=== PATIENT | male | born 1965 | race Caucasian/White ===

== ENCOUNTER 2019-10-21 08:28 | Outpatient (CLI) | payer OTHER, SELFPAY ==
[2019-10-21 13:04] LABS: Hemoglobin A1C 5.8 % (4.5-6.2)
[2019-10-21 13:10] LABS: Anion Gap 11.5 mmol/L (3-11); BUN 19 mg/dL (7-18); CO2 27.5 mmol/L (21.0-32.0); CREATININE 1.06 mg/dL (0.70-1.30); Calcium 9.5 mg/dL (8.5-10.1); Calculated LDL 147 mg/dL; Chloride 102 mmol/L (98-107); Cholesterol 246 mg/dL (<200); Glucose 92 mg/dL (74-106); HDL Cholesterol 47 mg/dL (40-60); Potassium 4.2 mmol/L (3.5-5.1); Sodium 141 mmol/L (136-145); Triglyceride 264 mg/dL (<150)
== END 2019-10-21 08:48 ==
PROVIDERS: PCP Nurse Practitioner; Visit Provider Nurse Practitioner
DX: I10 Essential (primary) hypertension (principal); Z13.220 Encounter for screening for lipoid disorders; Z13.1 Encounter for screening for diabetes mellitus
CPT/HCPCS: 36415; 80048; 80061; 83036

== ENCOUNTER → 2023-12-03 02:05 | Outpatient (CLI) | payer BC, SELFPAY ==
--- NOTE | 2023-12-03 14:55 | DI.RAD_ITS ---
Exam(s) XR LUMBAR SPINE COMPLETE EXAM: XR LUMBAR SPINE COMPLETE CLINICAL HISTORY: right low back pain,M54.50. TECHNIQUE: 2D digital imaging was performed of the lumbar spine. Five images were obtained. AP, la teral, right oblique, left oblique and L5-S1 spot views were obtained. COMPARISON: MR MRI - LUMBAR SPINE WO CONTRAST from 03/07/2016 MR MRI - LUMBAR SPINE W CONTRAST from 03/08/2016 FINDINGS: BONES: No fracture or destructive lesion. There are endplate osteophytes throughout the lumbar spine. Degenerative changes of the facets are seen at L4-5 and L5-S1. DISKS: There is disc space narrowing at T12-L1, L1-L2 and L5-S1. ALIGNMENT: There is L5 spondylolysis and grade 1-2 spondylolisthesis of L5 on S1 again seen. SOFT TISSUE: Vascular calcifications are present. IMPRESSION: 1. L5 spondylolysis and grade 1-2 spondylolisthesis of L5 on S1. 2. Moderate degenerative changes seen in the lumbar spine as described. DATA REPOSITORY: RADIATION DOSE DELIVERED:
== END ==
PROVIDERS: PCP Nurse Practitioner Family; Visit Provider Nurse Practitioner Family
DX: M43.06 Spondylolysis, lumbar region (principal)
CPT/HCPCS: 72110

== ENCOUNTER → 2024-01-01 03:59 | Outpatient (CLI) | payer BC, SELFPAY ==
--- NOTE | 2024-01-01 14:32 | DI.RAD_ITS ---
Exam(s) XR LUMBAR SPINE FLEX/EXT ONLY EXAM: XR LUMBAR SPINE FLEX/EXT ONLY CLINICAL HISTORY: LUMBAR SPONDYLOLYSIS AND SPONDYLOLISTHESIS, M43.06, M43.16 RADICULOPATHY. TECHNIQUE: 2D digital imaging was performed of the lumbar spine. Three images were obtained. Flexi on and extension lateral views were obtained. COMPARISON: CR XR LUMBAR SPINE COMPLETE from 12/03/2023 FINDINGS: This is a limited a limited examination. Compared to the five view lumbar spine from 12/03/2023, ther e is worsening of the spondylolisthesis of L5 on S1 with extension. There is 1.9 cm anterolisthesis of L5 on S1 compared to 0.8 cm anterolisthesis on the examination from 12/03/2023. There is 1.4 cm an terolisthesis of L5 on S1 on the flexion examination. There is spondylolysis of L5. There is marked narrowing of the L5-S1 disc space. There is disc space narrowing seen at T11-T12 through L1-L2. There are small endplate osteophytes at all levels of the lumbar spine. Vascular calcification is present. IMPRESSION: Significant worsening of the spondylolisthesis of L5 on S1 with extension compared to the neutral oli ms from 12/03/2023. There is worsening of the spondylolisthesis with flexion also but to a lesser deg ree. DATA REPOSITORY: RADIATION DOSE DELIVERED:
== END ==
PROVIDERS: PCP Nurse Practitioner Family; Visit Provider Nurse Practitioner Family
DX: M43.16 Spondylolisthesis, lumbar region (principal)
CPT/HCPCS: 72120

== ENCOUNTER 2024-01-09 01:11 | Outpatient (CLI) | payer BC, SELFPAY ==
[2024-01-09 12:07] LABS: Abs Immature Grans 0.04 10^3/uL (0.0-0.06); Absolute Basophil Count 0.05 10^3/uL (0.0-0.2); Absolute Lymphocyte Count 1.69 10^3/uL (1.2-3.4); Absolute Monocyte Count 0.93 10^3/uL (0.1-0.8); Basophils % 0.4; Eosinophils % 1.7; HCT 43.4 % (40.0-50.0); HGB 14.2 g/dL (13.5-17.5); Immature Grans % 0.3; Lymphocytes % 14.4; MCH 31.2 pg (27.0-33.0); MCHC 32.7 % (32.0-36.0); MCV 95 fL (80-95); MPV 11.4 fL (8.0-11.0); Monocytes % 7.9; Neutrophils % 75.3; Platelet Count 404 10^3/uL (130-400); RBC 4.55 10^6/uL (4.36-5.78); RDW 14.8 % (11.8-14.1); RDW-SD 52.4 fL; WBC 11.75 10^3/uL (4.4-10.8)
[2024-01-09 12:12] LABS: Absolute Neutrophil Count 8.85 10^3/uL (1.2-6.7)
[2024-01-09 12:17] LABS: Hemoglobin A1C 6.1 % (<5.7)
[2024-01-09 12:35] LABS: ALT 30 U/L (16-63); AST 14 U/L (15-37); Albumin 3.6 g/dL (3.4-5.0); Alkaline Phosphatase 78 U/L (46-116); BUN 29 mg/dL (7-18); Bilirubin, Total 0.2 mg/dL (0.2-1.0); CREATININE 1.5 mg/dL (0.70-1.30); Calcium 10.2 mg/dL (8.5-10.1); Calculated LDL 170 mg/dL (<100); Chloride 100 mmol/L (98-107); Cholesterol 271 mg/dL (<200); Glucose 167 mg/dL (74-106); HDL Cholesterol 59 mg/dL (40-60); Potassium 4.2 mmol/L (3.5-5.1); Sodium 139 mmol/L (136-145); TSH (W/Ref FT4) 1.61 uIU/mL (0.36-3.74); Total Protein 7.8 g/dL (6.4-8.2); Triglyceride 213 mg/dL (<150)
== END 2024-01-09 01:12 | disposition home or self-care (01) ==
LOC: LOS 01:11
PROVIDERS: PCP Nurse Practitioner Family; Visit Provider Nurse Practitioner Family
DX: Z00.00 Encounter for general adult medical examination without abnormal findings (principal); I10 Essential (primary) hypertension; R53.83 Other fatigue; R73.09 Other abnormal glucose; E66.01 Morbid (severe) obesity due to excess calories
CPT/HCPCS: 36415; 80053; 80061; 83036; 84443; 85025